=== PATIENT | female | born 1980 | race Caucasian/White ===

== ENCOUNTER 2019-08-25 07:49 | Emergency (ER) | payer MEDICAID ==
[~2019-08-25] VITALS: Ht 165.1 cm; Wt 113.6 kg
[2019-08-25] MEDS ORDERED: HYDROcodone/APAP 5/325 TABLET ONE (09:45)
--- NOTE | 2019-08-25 09:46 | NUR ---
pt refuses norco at this time. states "i don't want to wait. i have hydrocodone at home."
--- NOTE | 2019-08-25 09:50 | NUR ---
Patient/Caregiver given discharge instructions and they have confirmed that they understand the instructions. Patient ambulatory with steady gait USING CRUTCHES. NADN. PT LEFT WITH ALL PERSONAL BELONGINGS.
[2019-08-25] MEDS ORDERED: HYDROcodone/APAP 5/325 TABLET PO ONE (10:00)
--- NOTE | 2019-08-25 10:01 | NUR ---
PT REFUSED PRESCRIPTION THAT WAS GIVEN AT D/C FROM PROVIDER. PT STATES "JUST THROW IT AWAY."
== END 2019-08-25 09:55 | disposition home or self-care (01) ==
LOC: ED 09:49
DX: G89.11 Acute pain due to trauma (principal); M25.562 Pain in left knee; W01.198A Fall on same level from slipping, tripping and stumbling with subsequent striking against other object, initial encounter; Y93.89 Activity, other specified; Y92.89 Other specified places as the place of occurrence of the external cause; Y99.8 Other external cause status
CPT/HCPCS: 29505; 99283